=== PATIENT | male | born 1945 | race Caucasian/White ===

== ENCOUNTER 2016-09-27 19:28 | Inpatient (IN) | payer OTHER ==
[~2016-09-27] VITALS: Ht 167.6 cm; Wt 80.0 kg
--- NOTE | 2016-09-27 23:16 | DIAGNOSTIC IMAGING REPORT ---
PROCEDURE: CTA THORAX WITH CONTRAST INDICATION: Short of breath. Elevated D-dimer (16.2). History of prostate carcinoma. TECHNIQUE: Compared to CT thorax on 07/29/2016. of Isovue 370 was injected intravenously and axial images were obtained of the entire thorax with 3D sagittal and coronal MIP reconstructions. COMPARISON: None. FINDINGS: There is mild scarring at the left posterior lung base. Lungs are otherwise clear. Pulmonary vessels are normal and there is no evidence of pulmonary embolus. Heart and mediastinum are normal. Mild degenerate changes of the thoracic spine. IMPRESSION: 1. Negative CT pulmonary arteriogram. No evidence of pulmonary embolus. 2. Findings discussed with Dr. Carr. All CT scans at this facility use dose modulation, iterative reconstruction, and/or weight-based dosing when appropriate to reduce radiation dose to as low as reasonably achievable.
--- NOTE | 2016-09-27 23:58 | ED NURSING NOTES ---
Clinical Report - Nurses [facility] [place] [address] 09/27/2016 19:29 [id number] TRI[facility] Triage time 19:36 Sep 27 2016. Acuity: LEVEL 3. Chief Complaint: Location of symptoms- (SOB). ( 98% on 3L was 88% on RA). RIKI COMA SCORE: [place] Coma Scale. (15). --19:43 Jose Luis Reese R.N. 19:36 09/27/16. BP: 137/66. HR: 95. RR: 20. O2 saturation: 98%. Temp: 101 F. --19:43 Jose Luis Reese R.N. Weight: 77.1 kg stated. Height/Length: 66 inches Per Patient. BMI: 27.4. --19:41 Jose Luis Reese R.N. Medications Xeljanz Oral. --19:38 Jose Luis Reese R.N. Triazolam Oral. --19:39 Jose Luis Reese R.N. Losartan Potassium Oral. --19:39 Jose Luis Reese R.N. Furosemide Oral. --19:39 Jose Luis Reese R.N. Simvastatin Oral. --19:39 Jose Luis Reese R.N. Allergies No Known Drug Allergy. --19:40 Jose Luis Reese R.N. History Arrived by EMS. ( Pt arrives via ems report that pt has had SOB for 2 weeks. Pt states that he gets SOB with exertion. HX of prostate cancer). This occurred (2 weeks). Treatment CONVEYOR LOADER: None. --19:43 Jose Luis Reese R.N. SOCIAL HX: Light tobacco smoker. No alcohol use or drug use. --19:43 Jose Luis Reese R.N. PROBLEMS: Hypercholesterolemia. Prostate Cancer. --19:41 Jose Luis Reese R.N. ADDITIONAL SURGERIES: Carpal Tunnel Surgery. Total Hip Replacement. --19:41 Jose Luis Reese R.N. Interventions ID band on patient. To treatment room. --19:43 Jose Luis Reese R.N. PHYSICAL ASSESSMENT GENERAL / NEURO / PSYCH: Oriented X 4. Alert. Appears in no acute distress. HEENT: No facial asymmetry noted. Head non-tender. No swelling of head. RESPIRATORY: Mild respiratory distress. The patient can speak in full sentences. Accessory muscle use. Decreased breath sounds diffusely over both lungs. SKIN: Skin is warm and dry. --19:44 Jose Luis Reese R.N. NURSING PROGRESS NOTES Patient gowned. Reassurance given. Two patient identifiers checked. Call light placed in reach. Side rails up x 1. Brakes of bed on. --19:44 Jose Luis Reese R.N. Patient waiting for evaluation. --19:44 Jose Luis Reese R.N. 19:44 09/27/2016 Site #1 started via IV antecubital space with an 20g angiocath, with aseptic technique and good blood return; one attempt. Blood drawn: rainbow set and cultures x1. Labeled in the presence of the patient. Saline lock flushed. --19:44 Jose Luis Reese R.N. 20:28 09/27/2016 Levofloxacin PO 500 mg given. Allergies verified and confirmed 5 rights. --20:28 Jose Luis Reese R.N. 20:29 09/27/2016 Prednisone PO 40 mg given. Allergies verified and confirmed 5 rights. --20:29 Jose Luis Reese R.N. 23:21 09/27/16. BP: 115/58. HR: 93. --23:21 Jose Luis Reese R.N. 22:30 09/27/2016 Duoneb (Ipratropium-Albuterol) Neb TX Nebulizer 1 unit dose given. Given by the respiratory therapist. Allergies verified and confirmed 5 rights. --23:30 Jd Senior, SHALOM Baby Counselor 23:43 09/27/2016 Started bag #1 1000 mL IV Fluids IV NS (Saline); bolus of 1000 mL wide open via site #1. Allergies verified and confirmed 5 rights. IV patency established. IV site checked: no pain, redness, or swelling. IV flushed thoroughly pre- and post-medication administration. --23:43 Jose Luis Reese R.N. 23:52 09/27/2016 Albuterol Neb TX 1 unit dose given. Given by the respiratory therapist. Allergies verified and confirmed 5 rights. --23:52 Jd Senior, SHALOM Baby Counselor 23:54 09/27/16. O2 saturation: 98%. --23:54 Jose Luis Reese R.N. ( on 4L). --23:54 Jose Luis Reese R.N. 00:42 09/28/2016 Tylenol (Acetaminophen) PO 650 mg given. Allergies verified and confirmed 5 rights. --00:42 Jose Luis Reese R.N. DISPOSITION / DISCHARGE 00:26 09/28/16. BP: 112/53. HR: 82. RR: 18. O2 saturation: 98%. --00:27 Jose Luis Reese R.N. 00:30 09/28/16. Temp: 100.5 F. --00:31 Jose Luis Reese R.N. Report was given to a nurse via a phone call. All questions were answered. Report was acknowledged. --01:06 Jose Luis Reese R.N. 01:07 09/28/16. Pain level now 0/10. --01:07 Jose Luis Reese R.N. Locked/Released at 09/28/2016 2:07 by Jose Luis Reese R.N.
--- NOTE | 2016-09-27 23:58 | ED ORDER SUMMARY ---
..... Patient: YOUNG GONZALEZ OrderSheet [facility] VisitID: [id number] [place] [address] 71y, M Registration Date/Time: 09/27/2016 ORDER SHEET Weight: 77.1 kg (stated) Allergies: No Known Drug Allergy GENERAL ORDERS: CBC w Diff Urgent (19:36 09/27/2016 Stacy Beckham) (Ack 20:02 CHagerty ER Firer Powerhouse) (21:29 CHagerty ER Firer Powerhouse) CMP Urgent (19:36 09/27/2016 Stacy Beckham) (Ack 20:02 CHagerty ER Firer Powerhouse) (21:29 CHagerty ER Firer Powerhouse) UA-Culture if indicated Urgent (19:36 09/27/2016 Stacy Beckham) (Ack 20:02 CHagerty ER Firer Powerhouse) PT with INR Urgent (19:36 09/27/2016 Stacy Beckham) (Ack 20:02 CHagerty ER Firer Powerhouse) (21:29 CHagerty ER Firer Powerhouse) PTT Urgent (19:36 09/27/2016 Stacy Beckham) (Ack 20:02 CHagerty ER Firer Powerhouse) (21:29 CHagerty ER Firer Powerhouse) Rapid Influenza Screen (Nasal Pharyngeal) (laundry operator wash room) Urgent (19:50 09/27/2016 DBeyer R.N. per protocol) (Ack 20:02 CHagerty ER Firer Powerhouse) (21:29 CHagerty ER Firer Powerhouse) BNP Urgent (21:25 09/27/2016 Stacy Beckham) (21:29 CHagerty ER Firer Powerhouse) D-Dimer Urgent (21:25 09/27/2016 Stacy Beckham) (21:29 CHagerty ER Firer Powerhouse) CTA Thorax w Cont (No) (gfr > 60) Urgent (21:58 09/27/2016 Hernando Beckham) (Ack 22:01 CHagerty ER Firer Powerhouse) (22:45 MCampbell) MEDICATION ORDERS: DuoNeb Neb Tx 1 unit dose (NOW) (20:21 09/27/2016 Stacy Beckham) (Ack 20:24 CHagerty ER Firer Powerhouse) (23:30 CHagerty ER Firer Powerhouse) Levofloxacin PO 500 mg (NOW) (20:22 09/27/2016 Stacy Beckham) (20:28 Edmundo R.N.) Prednisone PO 40 mg (NOW) (20:22 09/27/2016 Stacy Beckham) (20:29 CARMELOeygabriel R.N.) Albuterol Neb Tx 5 mg (NOW) (23:47 09/27/2016 Hernando Beckham) (Ack 23:51 CHagerty ER Firer Powerhouse) (23:52 CHagerty ER Firer Powerhouse) Tylenol PO 650 mg (NOW) (00:38 09/28/2016 Hernando Beckham) (0:42 Edmundo R.N.) IV FLUIDS: IV Saline Lock (19:36 09/27/2016 Stacy Beckham) (19:44 Edmundo R.N.) IV NS : initial bolus 1000 mL (1000 mL/hr), then none - for X1 (NOW) (for renal protection) (23:31 09/27/2016 Hernando Beckham) (23:43 DBeygabriel R.N.) ORDER SHEET NOTES: [Electronically signed by Jose Luis Reese R.N. (02:07 09/28/2016)] [Electronically signed by Ramon Carr Dr. (04:43 10/03/2016)] [Electronically locked/signed by Jose Luis Reese R.N. (02:07 09/28/2016)]
--- NOTE | 2016-09-27 23:58 | ED ORDER SUMMARY ---
..... Patient: YOUNG GONZALEZ OrderSheet [facility] VisitID: [id number] [place] [address] 71y, M Registration Date/Time: 09/27/2016 ORDER SHEET Weight: 77.1 kg (stated) Allergies: No Known Drug Allergy GENERAL ORDERS: CBC w Diff Urgent (19:36 09/27/2016 Stacy Beckham) (Ack 20:02 CHagerty ER Neurology Professor) (21:29 CHagerty ER Neurology Professor) CMP Urgent (19:36 09/27/2016 Stacy Beckham) (Ack 20:02 CHagerty ER Neurology Professor) (21:29 CHagerty ER Neurology Professor) UA-Culture if indicated Urgent (19:36 09/27/2016 Stacy Beckham) (Ack 20:02 CHagerty ER Neurology Professor) PT with INR Urgent (19:36 09/27/2016 Stacy Beckham) (Ack 20:02 CHagerty ER Neurology Professor) (21:29 CHagerty ER Neurology Professor) PTT Urgent (19:36 09/27/2016 Stacy Beckham) (Ack 20:02 CHagerty ER Neurology Professor) (21:29 CHagerty ER Neurology Professor) Rapid Influenza Screen (Nasal Pharyngeal) (hotel breakfast attendant) Urgent (19:50 09/27/2016 DBeyer R.N. per protocol) (Ack 20:02 CHagerty ER Neurology Professor) (21:29 CHagerty ER Neurology Professor) BNP Urgent (21:25 09/27/2016 Stacy Beckham) (21:29 CHagerty ER Neurology Professor) D-Dimer Urgent (21:25 09/27/2016 Stacy Beckham) (21:29 CHagerty ER Neurology Professor) CTA Thorax w Cont (No) (gfr > 60) Urgent (21:58 09/27/2016 Hernando Beckham) (Ack 22:01 CHagerty ER Neurology Professor) (22:45 MCampbell) MEDICATION ORDERS: DuoNeb Neb Tx 1 unit dose (NOW) (20:21 09/27/2016 Stacy Beckham) (Ack 20:24 CHagerty ER Neurology Professor) (23:30 CHagerty ER Neurology Professor) Levofloxacin PO 500 mg (NOW) (20:22 09/27/2016 Stacy Beckham) (20:28 Edmundo R.N.) Prednisone PO 40 mg (NOW) (20:22 09/27/2016 Stacy Beckham) (20:29 CARMELOeygabriel R.N.) Albuterol Neb Tx 5 mg (NOW) (23:47 09/27/2016 Hernando Beckham) (Ack 23:51 CHagerty ER Neurology Professor) (23:52 CHagerty ER Neurology Professor) Tylenol PO 650 mg (NOW) (00:38 09/28/2016 Hernando Beckham) (0:42 Edmundo R.N.) IV FLUIDS: IV Saline Lock (19:36 09/27/2016 Stacy Beckham) (19:44 Edmundo R.N.) IV NS : initial bolus 1000 mL (1000 mL/hr), then none - for X1 (NOW) (for renal protection) (23:31 09/27/2016 Hernando Beckham) (23:43 DBeygabriel R.N.) ORDER SHEET NOTES: [Electronically signed by Jose Luis Reese R.N. (02:07 09/28/2016)] [Electronically signed by Ramon Carr Dr. (04:43 10/03/2016)] [Electronically locked/signed by Jose Luis Reese R.N. (02:07 09/28/2016)]
--- NOTE | 2016-09-27 23:58 | ED CLINICAL REPORT ---
Clinical Report - Physicians/Mid Levels [facility] [address] [place] [address] 09/27/2016 19:29 Patient: YOUNG GONZALEZ Time Seen: 19:35; initial patient contact. Arrived- By ambulance. Historian- patient. HISTORY OF PRESENT ILLNESS Chief Complaint: DYSPNEA and HISTORY OF CHRONIC OBSTRUCTIVE PULMONARY DISEASE. This started about 2 weeks ago and is still present. The dyspnea is described as moderate and is worsened by exertion. The patient has had sputum production, a cough, fever, wheezing and chills. He has had dyspnea on exertion. No sweating episodes, chest pain or discomfort, calf pain or foot swelling. No dizziness or palpitations. Similar symptoms previously: Several times. Recent medical care: The patient was seen recently in the office. ( Received PRBC's and Fe in oncology ofc 3 days ago for Hb of 6.7.). REVIEW OF SYSTEMS No nasal discharge, sinus drainage, nausea, vomiting or abdominal pain. No diarrhea, black stools or bloody stools. All systems otherwise negative, except as recorded above. PAST HISTORY Hypercholesterolemia. Prostate Cancer. SURGERIES: Carpal Tunnel Surgery. Total Hip Replacement. Medications: Simvastatin Oral. Furosemide Oral. Losartan Potassium Oral. Triazolam Oral. Xeljanz Oral. Allergies: No Known Drug Allergy. SOCIAL HISTORY Current every day smoker. No alcohol use or drug use. ADDITIONAL NOTES The nursing notes have been reviewed with agreement regarding the chief complaint, PMH and patient medications and allergies. PHYSICAL EXAM Vital Signs: 09/27/2016 19:36 BP: 137/66. HR: 95. RR: 20. O2 saturation: 98%. Temp: 101 F. Have been reviewed. Blood pressure normal. Heart rate normal. Respiratory rate normal. Febrile. Oxygen saturation normal. Eyes: No pale conjunctivae. ENT: Pharynx normal. Neck: Normal inspection. No jugular venous distention. CVS: Normal heart rate and rhythm. Heart sounds normal. Respiratory: Mild respiratory distress with accessory muscle use and retractions. Mildly prolonged expirations. Mildly decreased air movement diffusely over both lungs. Expiratory bilateral wheezes diffusely and posteriorly. Abdomen: Soft and nontender. No organomegaly. Skin: Skin warm and dry. Normal skin color. Extremities: No calf tenderness. No lower extremity edema. Neuro: Oriented X 3. LABS, X-RAYS, AND EKG Chest CT: (PROCEDURE: CTA THORAX WITH CONTRAST INDICATION: Short of breath. Elevated D-dimer (16.2). History of prostate carcinoma. TECHNIQUE: Compared to CT thorax on 07/29/2016. of Isovue 370 was injected intravenously and axial images were obtained of the entire thorax with 3D sagittal and coronal MIP reconstructions. COMPARISON: None. FINDINGS: There is mild scarring at the left posterior lung base. Lungs are otherwise clear. Pulmonary vessels are normal and there is no evidence of pulmonary embolus. Heart and mediastinum are normal. Mild degenerate changes of the thoracic spine. IMPRESSION: 1. Negative CT pulmonary arteriogram. No evidence of pulmonary embolus.). Chest CT performed with contrast. The study was independently viewed by me and interpreted by the radiologist. The study was discussed with the radiologist (via pacs and phone). Laboratory Tests: CBC w Diff: (JOSE: 09/27/2016 19:37) ( MsgRcvd 09/27/2016 21:10) Final results Test Result Flag Units (Reference) WHITE BLOOD COUNT 3.8 L K/uL (4.5-11.5) CORRECTED WBC 3.7 K/uL RED BLOOD COUNT 2.92 L M/uL (4.50-5.90) HEMOGLOBIN 9.7 L gm/dL (13.5-17.5) HEMATOCRIT 30.6 L % (41.0-53.0) MEAN CELL VOLUME 105 H fL (80-100) MEAN CORPUSCULAR HGB 33 pg (26-34) MEAN CORPUSCULAR HGB CONC 32 g/dL (31-37) RED CELL DISTRIBUTION WIDTH 18.4 H % (11.6-14.8) PLATELET COUNT 209 K/uL (150-400) POLY % 47 L % (50-75) BAND % 15 H % (0-8) LYMPH 6 L % (25-40) MONO 32 H % (3-14) EOSINOPHIL % 0 % (0-4) BASOPHIL % 0 % (0-2) METAMYELOCYTE % 0 % (0-1) MYELOCYTE 0 % (0-1) NUCLEATED RED BLOOD CELL 2 H (0-1) OTHER CELL TYPE 0 POLYCHROMASIA 2+ ANISOCYTOSIS 4+ TARGET CELLS 1+ OVALOCYTES 1+ MATTHEW-JOLLY BODIES 1+ KOSTAS CELLS 2+ ACANTHOCYTES 1+ OCT COMMENT FEW GIANT PLTS [id number]: (JOSE: 09/27/2016 19:37) ( [facility] 09/27/2016 21:54) Final results Test Result Flag Units (Reference) D-DIMER QUANTITATIVE 16.02 *H ug/mLFEU (0.27-0.52) CRITICAL RESULTS CALLEDCalled to [facility] 09/27/16 [id number] 2 patient identifiers used? YWas the result read back? YThe primary value of this quantitative assay relates toits negative predictive value (i.e. exclusion) of pulmonaryembolism/deep vein thrombosis/DIC.Elevated levels of d-dimer may also occur with:, age, cancer, inflammation, liver disease,post-op, infection, hematoma, coronary disease, peripheralarteriopathy, bleeding disorders and thrombolytic treatment.Results should be correlated with other clinical andradiological data.Testing Methodology: Latex Immunoassay PT with INR: (JOSE: 09/27/2016 19:37) ( [facility] 09/27/2016 20:03) Final results Test Result Flag Units (Reference) INR 1.1 (0.8-1.2) Low Intensity Therapy: INR 1.5-2.0 PT range 18.5-23.1Mod.Intensity Therapy: INR 2.0-3.0 PT range 23.1-31.5High Intensity Therapy: INR 2.5-3.5 PT range 27.4-35.5High Intensity Therapy 2: INR 3.0-4.0 PT range 31.5-39.3 APTT 34 SECONDS (24-34) BNP: (JOSE: 09/27/2016 19:37) ( [facility] 09/27/2016 21:55) Final results Test Result Flag Units (Reference) B-TYPE NATRIURETIC PEPTIDE 35.3 pg/ml (5-100) CMP: (JOSE: 09/27/2016 19:37) ( MsgRcvd 09/27/2016 19:58) Final results Test Result Flag Units (Reference) GLUCOSE 109 mg/dL (70-110) BUN 10 mg/dL (7-18) CREATININE 0.9 mg/dL (0.6-1.3) Estimated GFR >60 mL/min Estimated GFR- >60 mL/min Note: Persistent reduction over 3 months in eGFR<60 mL/min/1.73 m2 defines CKD. Patients with eGFR values>=60 mL/min/1.73 m2 may also have CKD if evidence ofpersistent proteinuria. Additional information may be foundat www.kidney.org. SODIUM 140 mmol/L (136-145) POTASSIUM 4.1 mmol/L (3.5-5.1) CHLORIDE 103 mmol/L (98-107) CARBON DIOXIDE 30 mmol/L (21-32) CALCIUM 8.8 mg/dL (8.5-10.1) TOTAL PROTEIN 7.5 g/dL (6.4-8.2) ALBUMIN 2.8 L g/dL (3.3-5.0) BILIRUBIN, TOTAL 0.3 mg/dL (0.0-1.0) ALKALINE PHOSPHATASE 48 U/L (46-116) AST (SGOT) 26 U/L (15-37) ALT (SGPT) 18 U/L (12-78) Rapid Influenza Screen: (JOSE: 09/27/2016 19:44) ( MsgRcvd 09/27/2016 20:15) Final results SPECIMEN DESCRIPTION: EQUIPMENT CLEANER Test Result Flag Units (Reference) RAPID INFLUENZA SCREEN DATE: 09/27/16 INFLUENZA A: NEGATIVE SCREEN FOR INFLUENZA A INFLUENZA B: NEGATIVE SCREEN FOR INFLUENZA B RAPID INFLUENZA NEGATIVE FOR "A" "B". . PROGRESS AND PROCEDURES Course of Care: DuoNeb nebulizer treatment (1 unit dose) given. THE PATIENT IS A PLEASANT 71-YEAR-OLD MALE WAS SIGNED OUT TO ME AT THE CHANGE OF SHIFT.. PLANS TO FOLLOW UP WITH THE PATIENT'S CT A OF THE CHEST. PATIENT'S D-DIMER IS ELEVATED AT 16.3. The patient has received several breathing treatments here in the emergency department as well as antibiotics. At this point in time, patient is nontoxic in appearance. Patient is still hypoxic when placed on room air. Another breathing treatment will be ordered. Workup shows no signs of acute pulmonary embolism. Patient still hypoxic on room air. Because of the patient's hypoxia, do not fill patient is a stable outpatient candidate. Patient will be admitted for COPD exacerbation. Appropriate at about extroverted and started previously prior to my arrival on shift. No other acute abnormalities. Patient without any signs of acute respiratory distress. Do not feel patient needs to be admitted to the ICU at this time. Discussed the patient workup, diagnosis, and plan of care. All questions answered. The patient is agreeable to treatment plan. Physical exam findings are improved. Symptoms better. Critical care performed (35 minutes). Time is exclusive of separately billable procedures. Time includes: direct patient care, patient reassessment, coordination of patient care, interpretation of data (laboratory data and chest xrays), review of patient's medical records, medical consultation and documentation of patient care. Disposition: Admitted to Acute Care. CLINICAL IMPRESSION acute hypoxia upper respiratory tract infection ACUTE COPD EXACERBATION. (Electronically signed by Ramon aCrr Dr. 10/03/2016 4:43)
--- NOTE | 2016-09-27 23:58 | ED NURSING NOTES ---
Clinical Report - Nurses [facility] [place] [address] 09/27/2016 19:29 [id number] TRI[facility] Triage time 19:36 Sep 27 2016. Acuity: LEVEL 3. Chief Complaint: Location of symptoms- (SOB). ( 98% on 3L was 88% on RA). RIKI COMA SCORE: [place] Coma Scale. (15). --19:43 Jose Luis Reese R.N. 19:36 09/27/16. BP: 137/66. HR: 95. RR: 20. O2 saturation: 98%. Temp: 101 F. --19:43 Jose Luis Reese R.N. Weight: 77.1 kg stated. Height/Length: 66 inches Per Patient. BMI: 27.4. --19:41 Jose Luis Reese R.N. Medications Xeljanz Oral. --19:38 Jose Luis Reese R.N. Triazolam Oral. --19:39 Jose Luis Reese R.N. Losartan Potassium Oral. --19:39 Jose Luis Reese R.N. Furosemide Oral. --19:39 Jose Luis Reese R.N. Simvastatin Oral. --19:39 Jose Luis Reese R.N. Allergies No Known Drug Allergy. --19:40 Jose Luis Reese R.N. History Arrived by EMS. ( Pt arrives via ems report that pt has had SOB for 2 weeks. Pt states that he gets SOB with exertion. HX of prostate cancer). This occurred (2 weeks). Treatment SAMPLE COLLECTOR: None. --19:43 Jose Luis Reese R.N. SOCIAL HX: Light tobacco smoker. No alcohol use or drug use. --19:43 Jose Luis Reese R.N. PROBLEMS: Hypercholesterolemia. Prostate Cancer. --19:41 Jose Luis Reese R.N. ADDITIONAL SURGERIES: Carpal Tunnel Surgery. Total Hip Replacement. --19:41 Jose Luis Reese R.N. Interventions ID band on patient. To treatment room. --19:43 Jose Luis Reese R.N. PHYSICAL ASSESSMENT GENERAL / NEURO / PSYCH: Oriented X 4. Alert. Appears in no acute distress. HEENT: No facial asymmetry noted. Head non-tender. No swelling of head. RESPIRATORY: Mild respiratory distress. The patient can speak in full sentences. Accessory muscle use. Decreased breath sounds diffusely over both lungs. SKIN: Skin is warm and dry. --19:44 Jose Luis Reese R.N. NURSING PROGRESS NOTES Patient gowned. Reassurance given. Two patient identifiers checked. Call light placed in reach. Side rails up x 1. Brakes of bed on. --19:44 Jose Luis Reese R.N. Patient waiting for evaluation. --19:44 Jose Luis Reese R.N. 19:44 09/27/2016 Site #1 started via IV antecubital space with an 20g angiocath, with aseptic technique and good blood return; one attempt. Blood drawn: rainbow set and cultures x1. Labeled in the presence of the patient. Saline lock flushed. --19:44 Jose Luis Reese R.N. 20:28 09/27/2016 Levofloxacin PO 500 mg given. Allergies verified and confirmed 5 rights. --20:28 Jose Luis Reese R.N. 20:29 09/27/2016 Prednisone PO 40 mg given. Allergies verified and confirmed 5 rights. --20:29 Jose Luis Reese R.N. 23:21 09/27/16. BP: 115/58. HR: 93. --23:21 Jose Luis Reese R.N. 22:30 09/27/2016 Duoneb (Ipratropium-Albuterol) Neb TX Nebulizer 1 unit dose given. Given by the respiratory therapist. Allergies verified and confirmed 5 rights. --23:30 Jd Senior, SHALOM Roll Operator 23:43 09/27/2016 Started bag #1 1000 mL IV Fluids IV NS (Saline); bolus of 1000 mL wide open via site #1. Allergies verified and confirmed 5 rights. IV patency established. IV site checked: no pain, redness, or swelling. IV flushed thoroughly pre- and post-medication administration. --23:43 Jose Luis Reese R.N. 23:52 09/27/2016 Albuterol Neb TX 1 unit dose given. Given by the respiratory therapist. Allergies verified and confirmed 5 rights. --23:52 Jd Senior, SHALOM Roll Operator 23:54 09/27/16. O2 saturation: 98%. --23:54 Jose Luis Reese R.N. ( on 4L). --23:54 Jose Luis Reese R.N. 00:42 09/28/2016 Tylenol (Acetaminophen) PO 650 mg given. Allergies verified and confirmed 5 rights. --00:42 Jose Luis Reese R.N. DISPOSITION / DISCHARGE 00:26 09/28/16. BP: 112/53. HR: 82. RR: 18. O2 saturation: 98%. --00:27 Jose Luis Reese R.N. 00:30 09/28/16. Temp: 100.5 F. --00:31 Jose Luis Reese R.N. Report was given to a nurse via a phone call. All questions were answered. Report was acknowledged. --01:06 Jose Luis Reese R.N. 01:07 09/28/16. Pain level now 0/10. --01:07 Jose Luis Reese R.N. Locked/Released at 09/28/2016 2:07 by Jose Luis Reese R.N.
[2016-09-28 01:56] VITALS: BP 102/48
[2016-09-28] MEDS ORDERED: XELJANZ5 MG PTUBE (02:56)
[2016-09-28] MEDS ORDERED: SIMVASTATIN80 MG PO (02:57)
[2016-09-28] MEDS ORDERED: HALCION EQUI0.125 MG SL (02:58)
[2016-09-28] MEDS ORDERED: FUROSEMIDE20 MG PO ×2 (02:58→03:00)
[2016-09-28] MEDS ORDERED: COZAAR50 MG PO (03:05)
--- NOTE | 2016-09-28 03:21 | History & Physical Report ---
Admission Admit Date 09/28/16 History Chief Complaint Shortness of Breath History of Present Illness Patient is a 71 year old male with a past medical history of COPD, Tobacco Use Disorder, Hyperlipidemia, Essential Hypertension, and Prostate Cancer. He presents to the ER at [facility] complaining of shortness of breath. Pt states his symptoms have been present for the last 2 weeks or so. He states his symptoms have progressively become worse to where he feels extremely short of breath today with light movement. Pt states he feels he is unable to draw a complete breath. He also reports occasional wheezing. Pt states he has had a cough which has been mildly productive of clear colored sputum. He also reports an intermittent tactile fever and chills. Pt drenies headache and myalgias. He denies any chest pain, palpitations, nausea, and vomiting. Pt states he is taking all of his medications has prescribed. He states he continues to smoke "lightly". No other complaints or concerns at this time. Patient History 1. COPD (chronic obstructive pulmonary disease) 2. Essential hypertension 3. Hyperlipidemia 4. Prostate cancer 5. Tobacco use disorder Social History Pt reports current daily tobacco use. He denies excessive alcohol consumption or use of illicit drugs. Family History Family history was reviewed; no changes noted. Medications and Allergies Medications Current Medications Sig/Joey Start time Last Medication Dose Route Stop Time Status Admin Azithromycin 500 MG DAILY 09/28 0900 AC PO 09/30 0901 Albuterol/Ipratropium 3 ML RTQID 09/28 0800 AC IN Methylprednisolone 125 MG Q8HR 09/28 0600 AC Sodium Succinate IV Pantoprazole Sodium 40 MG DAILY@0600 09/28 0600 AC IV Acetaminophen 650 MG Q6H PRN 09/28 0315 AC PO Docusate Sodium 250 MG BID PRN 09/28 0315 AC PO Morphine Sulfate 1 MG Q6H PRN 09/28 031 AC IV Naloxone HCl 0.4 MG PRN PRN 09/28 0315 AC IV Ondansetron HCl 4 MG Q6H PRN 09/28 0315 AC IV Sodium Chloride 1,000 ML ASDIRECTED 09/28 0315 AC IV Sodium Chloride 1,000 ML ASDIRECTED 09/28 0245 AC 09/28 IV 0254 Morphine Sulfate 2 MG Q4H PRN 09/28 0015 AC IV Albuterol/Ipratropium 3 ML Q4H PRN 09/27 2344 AC IN Morphine Sulfate 4 MG Q4H PRN 09/27 2344 AC IV Ondansetron HCl 4 MG Q8H PRN 09/27 2344 AC IV Home Medications: 1. Lasix 2. Losartan 3. Simvastatin 4. Triazolam 5. Xeljanz Allergies Coded Allergies: No Known Drug Allergy (01/09/04) Review of Systems Other All systems reviewed and are negative except for what has already been mentioned in the HPI. Physical Exam Vital Signs / I&Os Vital Signs Date Time Temp Pulse Resp B/P Pulse O2 O2 Flow FiO2 Ox Delivery Rate 09/28 0156 98.8 96 18 102/48 95 Nasal 3.0 Cannula 09/27 2353 2.0 09/27 2030 2.0 GENERAL: NAD; Pt laying comfortably in bed HEENT: AT/NC; PERRLA, EOMI; MM Moist CARDIAC: RRR, No M/R/G appreciated PULM: Wheezes at bilateral bases, no crackles appreciated, normal respiratory effort ABD: Soft, NT, ND, Positive BS in all quadrants; No hepatosplenomegaly appreciated EXT: No C/C/E in bilateral upper and lower extremity; No calve tenderness bilaterally SKIN: Warm, dry, pink, and intact NEURO: Alert and oriented x3; Following all commands PSYCH: Normal mood and affect LAB Results Laboratory Tests 09/27 193 Chemistry Plasma Sodium (136 - 145 mmol/L) 140 Plasma Potassium (3.5 - 5.1 mmol/L) 4.1 Plasma Chloride (98 - 107 mmol/L) 103 CO2 (Enzymatic) (21 - 32 mmol/L) 30 BUN (7 - 18 mg/dL) 10 Creatinine (0.6 - 1.3 mg/dL) 0.9 Est GFR ( Amer) (mL/min) >60 Est GFR (Non-Af Amer) (mL/min) >60 Glucose (70 - 110 mg/dL) 109 Plasma Calcium (8.5 - 10.1 mg/dL) 8.8 Total Bilirubin (0.0 - 1.0 mg/dL) 0.3 AST (15 - 37 U/L) 26 ALT (12 - 78 U/L) 18 Alkaline Phosphatase (46 - 116 U/L) 48 B-Natriuretic Peptide (5 - 100 pg/ml) 35.3 Total Protein (6.4 - 8.2 g/dL) 7.5 Albumin (3.3 - 5.0 g/dL) 2.8 Coagulation INR (0.8 - 1.2) 1.1 APTT (24 - 34 SECONDS) 34 D-Dimer, Quantitative (0.27 - 0.52 ug/mLFEU) 16.02 Hematology WBC (4.5 - 11.5 K/uL) 3.8 Corrected WBC (auto) (K/uL) 3.7 RBC (4.50 - 5.90 M/uL) 2.92 Hgb (13.5 - 17.5 gm/dL) 9.7 Hct (41.0 - 53.0 %) 30.6 MCV (80 - 100 fL) 105 MCH (26 - 34 pg) 33 RDW (11.6 - 14.8 %) 18.4 Neut % (Auto) (50 - 75 %) 47 Lymph % (Auto) (25 - 40 %) 6 [place] % (Auto) (3 - 14 %) 32 Eos % (Auto) (0 - 4 %) 0 Baso % (Auto) (0 - 2 %) 0 Band Neutrophils % (0 - 8 %) 15 Metamyelocytes % (0 - 1 %) 0 Myelocytes (0 - 1 %) 0 Nucleated RBCs (0 - 1) 2 Other Cell Type FEW GIANT PLTS Plt Count, EDTA (150 - 400 K/uL) 209 Polychromasia 2+ Anisocytosis (manual) 4+ Target Cells 1+ Ovalocytes 1+ [place] Bodies 1+ [place] Cells 2+ Acanthocytes (Spur) 1+ PUBS MCHC (31 - 37 g/dL) 32 Microbiology Date/Time Procedure - Status Source Growth 09/27 1943 Influenza Screen - COMP NASALPHAR Imaging CTA THORAX WITH CONTRAST INDICATION: Short of breath. Elevated D-dimer (16.2). History of prostate carcinoma. TECHNIQUE: Compared to CT thorax on 07/29/2016. of Isovue 370 was injected intravenously and axial images were obtained of the entire thorax with 3D sagittal and coronal MIP reconstructions. COMPARISON: None. FINDINGS: There is mild scarring at the left posterior lung base. Lungs are otherwise clear. Pulmonary vessels are normal and there is no evidence of pulmonary embolus. Heart and mediastinum are normal. Mild degenerate changes of the thoracic spine. IMPRESSION: 1. Negative CT pulmonary arteriogram. No evidence of pulmonary embolus. 2. Findings discussed with Dr. Carr. Assessment and Plan Problem List 1. Acute respiratory failure with hypoxemia Plan - Secondary to COPD Exacerbation - Start supplemental O2 to keep SpO2 between 88-92% - Duo-Neb breathing treatments q 6 hours scheduled - See #2 2. COPD exacerbation Plan - Start IV Solu-Medrol 125 mg q 8 hours for now - Start Duo-Neb breathing treatments q 6 hours scheduled - Monitor closely - Supplemental O2 to keep SpO2 greater than 88% - Start Azithromycin now for possible associated Bronchitis 3. Essential hypertension Plan - BP is borderline at present, therefore will hold pts home Lasix and Losartan for now 4. Hyperlipidemia Plan - Day team to restart pts home Simvastatin once dosage confirmed 5. Prostate cancer Plan - Pt is currently under treatment for this and follows up with Oncology as an outpatient 6. Tobacco use disorder Plan - Pt counseled to quit smoking
[2016-09-28 07:11] VITALS: BP 91/50
[2016-09-28 10:55] VITALS: BP 90/50
--- NOTE | 2016-09-28 12:31 | Progress Note ---
Subjective General Note Date: September 28, 2016 Admission Date: September 27, 2016 Hospital Day: 2 PCP: Nikhil Redmond M.D. Status: Inpatient Advanced Directive: FULL CODE Room: 208 Brief History: The patient is a 71-year-old white male with a significant past medical history of COPD, nicotine dependence-smoking, hyperlipidemia, hypertension, prostate CA, who presented to [facility] emergency department on the day of admission secondary to complaints of shortness of breath. Evaluation at that time was consistent with exacerbation of COPD, bronchitis, influenza A. Secondary to the above, the patient was admitted by Wesley Baxter M.D. for further evaluation and treatment. For other history present illness, past medical history, family history, social history, review of systems, and admission physical examination please see the patient's history and physical examination and ER visit note in the patient's medical record. Subjective: The patient states he is doing better today. Decrease shortness of breath. Persistent cough but improved. Patient requests: No specific Medications and Allergies Medications Current Medications Sig/Joey Start time Last Medication Dose Route Stop Time Status Admin Methylprednisolone 40 MG Q8HR 09/28 1400 AC Sodium Succinate IV Oseltamivir Phosphate 75 MG BID 09/28 0915 AC 09/28 PO 10/02 2101 1137 Azithromycin 500 MG DAILY 09/28 0900 AC 09/28 PO 09/30 0901 0902 Albuterol/Ipratropium 3 ML RTQID 09/28 0800 AC IN Pantoprazole Sodium 40 MG DAILY@0600 09/28 0600 AC 09/28 IV 0559 Acetaminophen 650 MG Q6H PRN 09/28 0315 AC PO Docusate Sodium 250 MG BID PRN 09/28 0315 AC PO Morphine Sulfate 1 MG Q6H PRN 09/28 0315 AC IV Naloxone HCl 0.4 MG PRN PRN 09/28 0315 AC IV Ondansetron HCl 4 MG Q6H PRN 09/28 0315 AC IV Sodium Chloride 1,000 ML ASDIRECTED 09/28 0315 AC IV Morphine Sulfate 2 MG Q4H PRN 09/28 0015 AC IV Albuterol/Ipratropium 3 ML Q4H PRN 09/27 2345 AC IN Ondansetron HCl 4 MG Q8H PRN 09/27 2345 AC IV Allergies Coded Allergies: No Known Drug Allergy (01/09/04) Physical Exam Vital Signs / I&Os Vital Signs Date Time Temp Pulse Resp B/P Pulse O2 O2 Flow FiO2 Ox Delivery Rate 09/28 1055 98.2 60 16 90/50 99 Nasal 3.0 Cannula 09/28 0935 Nasal 3.0 Cannula 09/28 0711 98.1 67 18 91/50 93 Nasal 3.0 Cannula 09/28 0200 Nasal 3.0 Cannula 09/28 0156 98.8 96 18 102/48 95 Nasal 3.0 Cannula 09/27 2354 2.0 09/27 2031 2.0 General Appearance Alert, Oriented X3, Cooperative, No acute distress Lungs Scattered rhonchi, minimal expiratory wheezes. Cardiovascular Regular rate and rhythm, Normal S1 and S2 Abdomen Normal bowel sounds, Soft, No tenderness Extremities No cyanosis, No clubbing, No edema Neurological Cranial nerves intact, No lateralizing signs Psych/Mental Status Mental status normal, Mood normal LAB Results Laboratory Tests 09/28 09/28 09/28 1117 1117 1105 Chemistry Troponin (0.00 - 1.5 ng/mL) <0.05 Cancelled C-Reactive Protein (0.0 - 0.9 mg/dL) 2.9 Procalcitonin Pending 09/28 09/28 09/28 0705 0320 UNK Chemistry Plasma Magnesium (1.8 - 2.4 mg/dL) 1.8 Troponin (0.00 - 1.5 ng/mL) <0.05 Serology Adenovirus (PCR) Cancelled Human Metapneumovirus Cancelled Influ A (H1N1 Se[place]) PCR Cancelled Influenza Type B (PCR) Cancelled Parainfluenza 1 (PCR) Cancelled Parainfluenza 2 (PCR) Cancelled Parainfluenza 3 (PCR) Cancelled RSV Type A (PCR) Cancelled RSV Type B (PCR) Cancelled Rhinovirus (PCR) Cancelled Urines Urine Color YELLOW Urine Appearance CLEAR Urine pH (5.0 - 8.0) 5.5 Ur Specific [place] (1.010 - 1.030) 1.010 Urine Protein (NEGATIVE) NEGATIVE Urine Ketones (NEGATIVE) NEGATIVE Urine Blood (NEGATIVE) NEGATIVE Urine Nitrite (NEGATIVE) NEGATIVE Urine Bilirubin (NEGATIVE) NEGATIVE Urine Urobilinogen (0.2 - 1.0 EU/dL) 0.2 Ur Leukocyte Esterase (NEGATIVE) NEGATIVE Urine RBC (0 - 1 rbc/hpf) NONE SEEN Urine WBC (0 - 1 wbc/hpf) NONE SEEN Ur Epithelial Cells (0 - 5 EPI/hpf) 0-1 Urine Bacteria (NONE SEEN) NONE SEEN Urine Glucose (NEGATIVE) NEGATIVE Urine Comment CULT NOT INDICATED 09/27 193 Chemistry Plasma Sodium (136 - 145 mmol/L) 140 Plasma Potassium (3.5 - 5.1 mmol/L) 4.1 Plasma Chloride (98 - 107 mmol/L) 103 CO2 (Enzymatic) (21 - 32 mmol/L) 30 BUN (7 - 18 mg/dL) 10 Creatinine (0.6 - 1.3 mg/dL) 0.9 Est GFR ( Amer) (mL/min) >60 Est GFR (Non-Af Amer) (mL/min) >60 Glucose (70 - 110 mg/dL) 109 Plasma Calcium (8.5 - 10.1 mg/dL) 8.8 Total Bilirubin (0.0 - 1.0 mg/dL) 0.3 AST (15 - 37 U/L) 26 ALT (12 - 78 U/L) 18 Alkaline Phosphatase (46 - 116 U/L) 48 B-Natriuretic Peptide (5 - 100 pg/ml) 35.3 Total Protein (6.4 - 8.2 g/dL) 7.5 Albumin (3.3 - 5.0 g/dL) 2.8 Coagulation INR (0.8 - 1.2) 1.1 APTT (24 - 34 SECONDS) 34 D-Dimer, Quantitative (0.27 - 0.52 ug/mLFEU) 16.02 Hematology WBC (4.5 - 11.5 K/uL) 3.8 Corrected WBC (auto) (K/uL) 3.7 RBC (4.50 - 5.90 M/uL) 2.92 Hgb (13.5 - 17.5 gm/dL) 9.7 Hct (41.0 - 53.0 %) 30.6 MCV (80 - 100 fL) 105 MCH (26 - 34 pg) 33 RDW (11.6 - 14.8 %) 18.4 Neut % (Auto) (50 - 75 %) 47 Lymph % (Auto) (25 - 40 %) 6 [place] % (Auto) (3 - 14 %) 32 Eos % (Auto) (0 - 4 %) 0 Baso % (Auto) (0 - 2 %) 0 Band Neutrophils % (0 - 8 %) 15 Metamyelocytes % (0 - 1 %) 0 Myelocytes (0 - 1 %) 0 Nucleated RBCs (0 - 1) 2 Other Cell Type FEW GIANT PLTS Plt Count, EDTA (150 - 400 K/uL) 209 Polychromasia 2+ Anisocytosis (manual) 4+ Target Cells 1+ Ovalocytes 1+ [place] Bodies 1+ [place] Cells 2+ Acanthocytes (Spur) 1+ PUBS MCHC (31 - 37 g/dL) 32 Microbiology Date/Time Procedure - Status Source Growth 09/27 1943 Influenza Screen - COMP NASALPHAR Imaging CTA Thorax IMPRESSION: 1. Negative CT pulmonary arteriogram. No evidence of pulmonary embolus. 2. Findings discussed with Dr. Carr. All CT scans at this facility use dose modulation, iterative reconstruction, and/or weight-based dosing when appropriate to reduce radiation dose to as low as reasonably achievable. Dictated by: SP HERNANDEZ MD D: HERNANDEZ;09/27/16 1725 CTA imaging reviewed-09/28/69 Berry Barrera M.D. Assessment and Plan Problem List 1. COPD exacerbation Plan -Patient presents with findings of exacerbation of COPD -DuoNeb, albuterol, IV corticosteroids, and O2 supplementation as necessary -Status improved since admission -Continue present therapy switching to oral corticosteroids in a.m. if stable -Anticipated discharge 1-2 days with improved status 2. Tobacco use disorder Plan -Smoking cessation education -NicoDerm when necessary -Encourage smoking abstinence post discharge 3. Essential hypertension Plan -BP on the low side -Monitor -Hold antihypertensives at this time. -Low-salt diet 4. Anemia Status Acute Onset Date Unknown Plan -Patient with mild anemia -H&H 9.7/30.6 -Macrocytic -Check B12, folate, iron studies. 5. Macrocytosis Status Acute Onset Date Unknown Plan -See above -Macrocytic anemia -Check B12 and folate level 6. Influenza A Status Acute Onset Date Unknown Plan -Patient presents with findings of influenza A -Tamiflu 75 mg by mouth twice a day 5 days -Monitor for secondary bacterial infection Current status: Fair, stable Anticipated discharge date: Anticipated discharge in 2-3 days Anticipated discharge placement: Home Patient care time: Time spent in chart review, patient interview, physical exam, CPOE, and care documentation: 35 minutes Visit to patient today: 2 Complexity of care: High E&M Codes Rounding: Inpt-High/[id number]
[2016-09-28 14:50] VITALS: BP 101/60
[2016-09-28 18:42] VITALS: BP 102/57
[2016-09-29] VITALS (8 sets, daily range): BP systolic 96–123; BP diastolic 50–83
--- NOTE | 2016-09-29 07:37 | Progress Note ---
Subjective General Note Date: September 29, 2016 Admission Date: September 27, 2016 Hospital Day: 3 PCP: Nikhil Redmond M.D. Status: Inpatient Advanced Directive: FULL CODE Room: 208 Brief History: The patient is a 71-year-old white male with a significant past medical history of COPD, nicotine dependence-smoking, hyperlipidemia, hypertension, prostate CA, who presented to [facility] emergency department on the day of admission secondary to complaints of shortness of breath. Evaluation at that time was consistent with exacerbation of COPD, bronchitis, influenza A. Secondary to the above, the patient was admitted by Wesley Baxter M.D. for further evaluation and treatment. For other history present illness, past medical history, family history, social history, review of systems, and admission physical examination please see the patient's history and physical examination and ER visit note in the patient's medical record. Subjective: The patient states he is doing better today. Decrease shortness of breath. Persistent cough but improved. Remains weak Patient requests: No specific other expectorant for cough Medications and Allergies Medications Current Medications Sig/Joey Start time Last Medication Dose Route Stop Time Status Admin Methylprednisolone 40 MG Q8HR 09/28 1400 AC 09/28 Sodium Succinate IV 2131 Oseltamivir Phosphate 75 MG BID 09/28 0915 AC 09/28 PO 10/02 210 2131 Azithromycin 500 MG DAILY 09/28 0900 AC 09/28 PO 09/30 0901 0902 Albuterol/Ipratropium 3 ML RTQID 09/28 0800 AC 09/28 IN 1948 Pantoprazole Sodium 40 MG DAILY@0600 09/28 0600 AC 09/28 IV 0559 Acetaminophen 650 MG Q6H PRN 09/28 0315 AC PO Docusate Sodium 250 MG BID PRN 09/28 0315 AC PO Morphine Sulfate 1 MG Q6H PRN 09/28 0315 AC IV Naloxone HCl 0.4 MG PRN PRN 09/28 0315 AC IV Ondansetron HCl 4 MG Q6H PRN 09/28 0315 AC IV Sodium Chloride 1,000 ML ASDIRECTED 09/28 0315 AC 09/29 IV 0415 Morphine Sulfate 2 MG Q4H PRN 09/28 0015 AC IV Albuterol/Ipratropium 3 ML Q4H PRN 09/27 2345 AC IN Ondansetron HCl 4 MG Q8H PRN 09/27 2345 AC IV Allergies Coded Allergies: No Known Drug Allergy (01/09/04) Physical Exam Vital Signs / I&Os Vital Signs Date Time Temp Pulse Resp B/P Pulse O2 O2 Flow FiO2 Ox Delivery Rate 09/29 0712 99.0 82 20 116/55 100 Nasal 2.0 Cannula 09/29 0409 98.6 93 20 118/59 93 Nasal 2.0 Cannula 09/29 0034 98.6 78 16 106/60 96 Nasal 2.0 Cannula 09/28 2051 Nasal 2.0 Cannula 09/28 1949 2.0 09/28 1842 98.4 76 16 102/57 95 Nasal 2.0 Cannula 09/28 1535 2.0 09/28 1450 97.9 68 18 101/60 98 Nasal 3.0 Cannula 09/28 1055 98.2 60 16 90/50 99 Nasal 3.0 Cannula 09/28 0935 Nasal 3.0 Cannula I&O 09/29 0000 09/28 1600 09/28 0800 Intake Total 1586 420 456 Output Total 250 350 400 Balance 1336 70 56 General Appearance Alert, Oriented X3, Cooperative, No acute distress Lungs Scattered rhonchi, mild expiratory wheezes Cardiovascular Regular rate and rhythm, Normal S1 and S2 Abdomen Normal bowel sounds, Soft, No tenderness Extremities No cyanosis, No clubbing, No edema Neurological Cranial nerves intact, No lateralizing signs Psych/Mental Status Mental status normal, Mood normal LAB Results Laboratory Tests 09/29 09/29 09/29 09/28 09/28 0558 0558 0500 1510 1117 Chemistry Plasma Sodium (136 - 145 mmol/L) 143 Plasma Potassium (3.5 - 5.1 mmol/L) 4.9 Plasma Chloride (98 - 107 mmol/L) 109 CO2 (Enzymatic) (21 - 32 mmol/L) 31 BUN (7 - 18 mg/dL) 12 Creatinine (0.6 - 1.3 mg/dL) 0.6 Est GFR ( Amer) (mL/min) >60 Est GFR (Non-Af Amer) (mL/min) >60 Glucose (70 - 110 mg/dL) 139 Plasma Calcium (8.5 - 10.1 mg/dL) 7.5 Iron (35 - 150 ug/dL) 28 TIBC (260 - 445 ug/dL) 157 Iron Saturation (15 - 50 %) 18 Troponin (0.00 - 1.5 ng/mL) <0.05 Vitamin B12 (211 - 946 pg/mL) 820 Cancelled Folate (>3.0 ng/mL) 7.5 Cancelled Procalcitonin (0 - 0.5 ng/mL) <0.5 Hematology WBC (4.5 - 11.5 K/uL) 6.5 RBC (4.50 - 5.90 M/uL) 2.48 Hgb (13.5 - 17.5 gm/dL) 8.0 Hct (41.0 - 53.0 %) 26.2 MCV (80 - 100 fL) 105 MCH (26 - 34 pg) 32 RDW (11.6 - 14.8 %) 18.2 Neut % (Auto) (50 - 75 %) 79.6 Lymph % (Auto) (25 - 40 %) 2.4 [place] % (Auto) (3 - 14 %) 18.0 Eos % (Auto) (0 - 4 %) 0 Baso % (Auto) (0 - 2 %) 0 Plt Count, EDTA (150 - 400 K/uL) 165 PUBS MCHC (31 - 37 g/dL) 09/28 1117 1105 Chemistry Troponin (0.00 - 1.5 ng/mL) <0.05 Cancelled C-Reactive Protein (0.0 - 0.9 mg/dL) 2.9 Assessment and Plan Problem List 1. COPD exacerbation Plan -Status stable to improved -O2 sat 94% 2 L/m nasal cannula -Continue DuoNeb/albuterol/supplemental oxygen/corticosteroids -Switch to prednisone 40 mg by mouth daily -Monitor 2. Influenza A Status Acute Onset Date Unknown Plan -Stable -Afebrile -Continue Tamiflu 75 mg by mouth twice a day -Monitor 3. Anemia Status Acute Onset Date Unknown Plan -Mild -H&H-8.0/26.2 -Macrocytic -B12, folate, iron studies within normal limits -Monitor 4. Macrocytosis Status Acute Onset Date Unknown Plan -See above -B12, folate within normal limits 5. Essential hypertension Plan -Blood pressure well controlled -BP this a.m. 103/51 mmHg -Low-salt diet -Monitor 6. Tobacco use disorder Plan -Patient with history of tobacco use disorder/nicotine dependence -NicoDerm patch when necessary -Encourage smoking cessation -Encourage smoking abstinence post discharge 7. Prostate cancer Plan -Outpatient follow-up with PCP Current status: Fair, improved Anticipated discharge date: Anticipated discharge 1-2 days with improved status Anticipated discharge placement: Home Patient care time: Time spent in chart review, patient interview, physical exam, CPOE, and care documentation: 25 minutes Visit to patient today: 1 Complexity of care: Moderate Plan care transferred to Dr. Redmond in a.m. E&M Codes Rounding: Inpt-Moderate/[id number]
[2016-09-30] VITALS (14 sets, daily range): BP systolic 109–139; BP diastolic 55–68
--- NOTE | 2016-09-30 08:42 | Progress Note ---
Subjective General SICKNESS BEGAN SINCE LASHAWN. MORE SOB THIS WEEKEND SO CAME TO ER AND ADMITTED FOR FLU? WBC LOW AND ANEMIC WITH PROGRESSIVE PROSTATE CA. Constitutional Fever, Chills. Denies: Sweats, Weakness, Malaise. Eyes Denies: Pain, Vision Change, Conjunctival Inflammation, Eyelid Inflammation, Redness, Other. ENT Denies: Ear Pain, Ear Discharge, Nose Pain, Nasal Discharge, Nasal Congestion, Mouth Pain, Mouth Swelling, Throat Pain, Throat Swelling. Respiratory Cough, SOB w/exertion, Other (SPUTUM PRODUCTION LAST WEEK PEREIRA). Denies: Dry, Wheezing, Hemoptysis, Pleuritic Pain, Sputum. Cardiovascular Edema (RESOLVED WITH ELEVATION AND SC). Denies: Chest Pain, Palpitations, Orthopnea, PND, Light-headedness. Gastrointestinal Diarrhea (IMPROVED), Other (SOOLS DARKER). Denies: Nausea, Vomiting, Abdominal Pain, Constipation, Melena, Hematochezia. Genitourinary Denies: Dysuria, Frequency, Incontinence, Hematuria, Retention. Musculoskeletal Denies: Other (WRIST PAINS CONTROLLED). Skin Denies: Rash, Lesions, Jaundice, Bruising, Other. Neurological Denies: Weakness, Numbness, Incoordination, Change in speech, Confusion, Seizures, Other. Physical Exam Vital Signs / I&Os Vital Signs Date Time Temp Pulse Resp B/P Pulse O2 O2 Flow FiO2 Ox Delivery Rate 09/30 0803 2.5 09/30 0655 99.0 80 18 114/61 90 Nasal 2.5 Cannula 09/30 0249 98.1 80 20 109/56 90 Room Air 2.5 09/29 2311 98.4 85 20 104/61 92 Room Air 2.0 09/29 2156 97.7 62 20 117/83 96 Room Air 2.0 09/29 2100 2.0 09/29 1939 Room Air 2.0 09/29 1831 98.2 87 20 96/50 94 Room Air 2.0 09/29 1531 2.0 09/29 1446 99.1 94 20 123/56 95 Room Air 2.0 09/29 1309 77 Room Air 09/29 1232 2.0 09/29 1044 99.1 96 20 103/51 94 Nasal 2.0 Cannula 09/29 0926 2.0 09/29 0900 Nasal 2.0 Cannula I&O 09/29 0800 09/29 1600 01/23 0000 Intake Total 992 528 5228 Output Total 800 250 660 Balance 0 290 1320 General Appearance Alert, Oriented X3, Cooperative, No acute distress HEENT Normal exam, Atraumatic, PERRLA, EOMI, Moist mucous membranes Lungs DIMINISHED BS W/O WHEEZE Breasts Symmetric Neck Normal exam, Supple, No JVD, No lymphadenopathy Cardiovascular Regular rate and rhythm, No murmurs, gallops, rubs Abdomen Normal bowel sounds, Soft, No tenderness Extremities Normal exam, No edema, Strength = upper ext's, Strength = lower ext' s Skin BRUISING ON ARMS Neurological Normal exam, Normal speech, Normal tone, Strength 5/5 x4 ext's, No lateralizing signs Psych/Mental Status Mental status normal, Mood normal LAB Results Laboratory Tests 09/30 0602 Hematology WBC (4.5 - 11.5 K/uL) 9.3 RBC (4.50 - 5.90 M/uL) 2.37 Hgb (13.5 - 17.5 gm/dL) 7.7 Hct (41.0 - 53.0 %) 24.9 MCV (80 - 100 fL) 105 MCH (26 - 34 pg) 33 RDW (11.6 - 14.8 %) 18.0 Neut % (Auto) (50 - 75 %) 86.8 Lymph % (Auto) (25 - 40 %) 1.9 [place] % (Auto) (3 - 14 %) 11.3 Eos % (Auto) (0 - 4 %) 0 Baso % (Auto) (0 - 2 %) 0 Plt Count, EDTA (150 - 400 K/uL) 155 PUBS MCHC (31 - 37 g/dL) 31 Assessment and Plan Problem List 1. COPD (chronic obstructive pulmonary disease) Plan SPIROMETRY 2. Hypoxia Plan SUPPLEMENTAL O2 3. Prostate cancer Plan STOPPED XTANDI? TREAMENT. 4. Anemia Status Acute Onset Date Unknown Plan GETTING IRON INFUSION AT ONCOLOGY. APPT SCHEDULED WITH DR STERN 10/08 TO ARRANGE COLONOSCOPY 5. Essential hypertension Plan CONTROLLED 6. Tobacco use disorder Plan STILL SMOKING AT HOME. WILL PROVIDE CESSATION INFO. E&M Codes Rounding: Inpt-Moderate/[id number]
[2016-10-01] VITALS (7 sets, daily range): BP systolic 109–157; BP diastolic 48–94
--- NOTE | 2016-10-01 07:23 | Progress Note ---
Subjective General nO PAINS TODAY. pOOR APPETITE. cOUGH IMPROVED. sTOOLS DARK. Constitutional Chills, Weakness. Denies: Fever, Sweats, Malaise. Eyes Denies: Pain, Vision Change, Conjunctival Inflammation, Eyelid Inflammation, Redness, Other. ENT Denies: Ear Pain, Ear Discharge, Nose Pain, Nasal Discharge, Nasal Congestion, Mouth Pain, Mouth Swelling, Throat Pain, Throat Swelling, Other. Respiratory Cough, Dry, SOB w/exertion. Denies: Wheezing, Hemoptysis, Pleuritic Pain, Sputum. Cardiovascular Denies: Chest Pain, Palpitations, Orthopnea, PND, Edema, Light-headedness. Gastrointestinal Melena, Other (STOOLS SOFT AND DARK, NOT TAR). Denies: Nausea, Vomiting, Abdominal Pain, Diarrhea, Constipation, Hematochezia. Genitourinary Denies: Dysuria, Frequency, Incontinence, Hematuria, Retention. Musculoskeletal Denies: Neck Pain, Shoulder Pain, Arm Pain, Back Pain, Hand Pain, Leg Pain, Foot Pain. Skin Bruising. Denies: Rash, Lesions, Jaundice. Neurological Other. Physical Exam Vital Signs / I&Os Vital Signs Date Time Temp Pulse Resp B/P Pulse O2 O2 Flow FiO2 Ox Delivery Rate 10/01 0710 3.0 10/01 0659 97.3 58 18 147/94 98 Room Air 0.0 10/01 0222 98.8 83 18 137/66 90 Nasal 3.0 Cannula 09/30 2200 3.0 09/30 2114 Nasal 3.0 Cannula 09/30 2104 98.4 73 18 123/61 96 Nasal 3.0 Cannula 09/30 2017 98.2 91 18 139/67 94 Nasal 3.0 Cannula 09/30 1915 98.4 87 18 129/57 96 Nasal 3.0 Cannula 09/30 1815 98.4 91 18 117/55 95 Nasal 3.0 Cannula 09/30 1750 90 18 119/56 95 3.0 09/30 1725 98.2 91 18 119/56 95 3.0 09/30 1656 98.4 93 16 124/64 99 Nasal 3.0 Cannula 09/30 1556 98.1 96 18 126/58 100 Nasal 3.0 Cannula 09/30 1528 3.0 09/30 1456 98.1 60 18 121/68 99 3.0 09/30 1440 98.4 92 18 127/61 94 Nasal 3.0 Cannula 09/30 1418 98.4 92 18 127/61 94 Nasal 3.0 Cannula 09/30 1205 2.0 09/30 1201 Nasal 3.0 Cannula 09/30 1023 98.6 97 18 130/65 86 Nasal 3.0 Cannula 09/30 0853 2.0 09/30 0803 2.5 I&O 09/30 0800 09/30 1600 10/01 0000 Intake Total 079 087 9699 Output Total 698 273 7956 Balance 182 490 -686 General Appearance Alert, Oriented X3, Cooperative, No acute distress HEENT Normal exam, PERRLA, EOMI, Moist mucous membranes Lungs Normal exam, Clear to auscultation, Normal air movement Breasts Symmetric Neck Supple, No JVD, No masses, No lymphadenopathy Cardiovascular Regular rate and rhythm, Normal S1 and S2, No murmurs, gallops, rubs Abdomen Normal exam, Normal bowel sounds, Soft, No tenderness, No rebound, No masses Extremities No clubbing, No edema, Normal pulses, Strength = upper ext's, Strength = lower ext's Skin No Rashes, No Breakdown, No Significant Lesions Neurological Normal exam, Normal speech, Normal tone, No lateralizing signs Psych/Mental Status Mental status normal, Mood normal Assessment and Plan Problem List 1. Influenza A Status Acute Onset Date Unknown Plan oN TAMIFLU 2. Upper respiratory disease Plan IMPROVING. 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 Hypoxia Plan WILL CHECK O2 4. COPD (chronic obstructive pulmonary disease) Plan SMOKING CESSATION. SPIROMETRY DONE 5. Prostate cancer Plan PROGRESSIVE 6. Anemia Status Acute Onset Date Unknown Plan COLONOSCOPY ONCE RECOVERED FROM 7. Essential hypertension Plan CONTROLLED
--- NOTE | 2016-10-01 07:23 | Progress Note ---
Subjective General nO PAINS TODAY. pOOR APPETITE. cOUGH IMPROVED. sTOOLS DARK. Constitutional Chills, Weakness. Denies: Fever, Sweats, Malaise. Eyes Denies: Pain, Vision Change, Conjunctival Inflammation, Eyelid Inflammation, Redness, Other. ENT Denies: Ear Pain, Ear Discharge, Nose Pain, Nasal Discharge, Nasal Congestion, Mouth Pain, Mouth Swelling, Throat Pain, Throat Swelling, Other. Respiratory Cough, Dry, SOB w/exertion. Denies: Wheezing, Hemoptysis, Pleuritic Pain, Sputum. Cardiovascular Denies: Chest Pain, Palpitations, Orthopnea, PND, Edema, Light-headedness. Gastrointestinal Melena, Other (STOOLS SOFT AND DARK, NOT TAR). Denies: Nausea, Vomiting, Abdominal Pain, Diarrhea, Constipation, Hematochezia. Genitourinary Denies: Dysuria, Frequency, Incontinence, Hematuria, Retention. Musculoskeletal Denies: Neck Pain, Shoulder Pain, Arm Pain, Back Pain, Hand Pain, Leg Pain, Foot Pain. Skin Bruising. Denies: Rash, Lesions, Jaundice. Neurological Other. Physical Exam Vital Signs / I&Os Vital Signs Date Time Temp Pulse Resp B/P Pulse O2 O2 Flow FiO2 Ox Delivery Rate 10/01 0710 3.0 10/01 0659 97.3 58 18 147/94 98 Room Air 0.0 10/01 0222 98.8 83 18 137/66 90 Nasal 3.0 Cannula 09/30 2200 3.0 09/30 2114 Nasal 3.0 Cannula 09/30 2104 98.4 73 18 123/61 96 Nasal 3.0 Cannula 09/30 2017 98.2 91 18 139/67 94 Nasal 3.0 Cannula 09/30 1915 98.4 87 18 129/57 96 Nasal 3.0 Cannula 09/30 1815 98.4 91 18 117/55 95 Nasal 3.0 Cannula 09/30 1750 90 18 119/56 95 3.0 09/30 1725 98.2 91 18 119/56 95 3.0 09/30 1656 98.4 93 16 124/64 99 Nasal 3.0 Cannula 09/30 1556 98.1 96 18 126/58 100 Nasal 3.0 Cannula 09/30 1528 3.0 09/30 1456 98.1 60 18 121/68 99 3.0 09/30 1440 98.4 92 18 127/61 94 Nasal 3.0 Cannula 09/30 1418 98.4 92 18 127/61 94 Nasal 3.0 Cannula 09/30 1205 2.0 09/30 1201 Nasal 3.0 Cannula 09/30 1023 98.6 97 18 130/65 86 Nasal 3.0 Cannula 09/30 0853 2.0 09/30 0803 2.5 I&O 09/30 0800 09/30 1600 10/01 0000 Intake Total 874 103 7556 Output Total 076 011 9659 Balance 182 490 -686 General Appearance Alert, Oriented X3, Cooperative, No acute distress HEENT Normal exam, PERRLA, EOMI, Moist mucous membranes Lungs Normal exam, Clear to auscultation, Normal air movement Breasts Symmetric Neck Supple, No JVD, No masses, No lymphadenopathy Cardiovascular Regular rate and rhythm, Normal S1 and S2, No murmurs, gallops, rubs Abdomen Normal exam, Normal bowel sounds, Soft, No tenderness, No rebound, No masses Extremities No clubbing, No edema, Normal pulses, Strength = upper ext's, Strength = lower ext's Skin No Rashes, No Breakdown, No Significant Lesions Neurological Normal exam, Normal speech, Normal tone, No lateralizing signs Psych/Mental Status Mental status normal, Mood normal Assessment and Plan Problem List 1. Influenza A Status Acute Onset Date Unknown Plan oN TAMIFLU 2. Upper respiratory disease Plan IMPROVING. CHECK O2 OFF NURSERY LABORER 3. Hypoxia Plan WILL CHECK O2 4. COPD (chronic obstructive pulmonary disease) Plan SMOKING CESSATION. SPIROMETRY DONE 5. Prostate cancer Plan PROGRESSIVE 6. Anemia Status Acute Onset Date Unknown Plan COLONOSCOPY ONCE RECOVERED FROM 7. Essential hypertension Plan CONTROLLED
[2016-10-01] MEDS ORDERED: IPRATROPIUM BROMIDE/ IN (08:37)
--- NOTE | 2016-10-01 09:13 | DIAGNOSTIC IMAGING REPORT ---
PROCEDURE: XR CHEST 2 VIEW INDICATION: DESATS WITH AND W/O O2 TECHNIQUE: PA and lateral view. COMPARISON: CTA thorax 09/27/2016 FINDINGS: New mild right basilar alveolar opacities, Seth B lines and at tiny bilateral pleural effusions. Normal heart size and pulmonary vessels. Bony thorax is unremarkable. IMPRESSION: 1. Right basilar infiltrate suggestive of pneumonia versus pulmonary edema with findings consistent with fluid overload 2. Results discussed with Dr. Redmond
--- NOTE | 2016-10-01 14:53 | DIAGNOSTIC IMAGING REPORT ---
PROCEDURE: US ECHOCARDIOGRAM INDICATION: Shortness of breath TECHNIQUE: Technically adequate study. The patient in sinus rhythm during study. COMPARISON: None FINDINGS: Left ventricle is normal in size with an end diastolic dimension of 4.5 cm. There is mild concentric left ventricular hypertrophy with interventricular septum and left ventricular posterior wall both measuring 1.1 cm. Left ventricular ejection fraction is normal and estimated at 60%. There is normal wall motion. Grade 1 diastolic dysfunction is present. Right ventricle is normal in size and function. Left atrium is mildly dilated. Right atrium is normal in size. Interatrial septum is intact. Aortic valve is trileaflet. There is mild sclerosis. No stenosis. There is trace insufficiency. Mitral valve has mild annular calcification. There is trace regurgitation. The tricuspid valve is normal in structure with mild insufficiency. Peak tricuspid insufficiency gradient is 40 mmHg. Pulmonary artery systolic pressure is estimated at 40-45 mmHg. Pulmonic valve is normal in structure and has trace insufficiency. Pericardium no effusion There is a small right pleural effusion. Ascending aorta is upper limits of normal in size at 3.7 cm. IMPRESSION: 1. Normal left ventricular ejection fraction, grade 1 diastolic dysfunction, trace aortic valve insufficiency, mild bordering on moderate pulmonary hypertension, small right pleural effusion.
[2016-10-02 02:47] VITALS: BP 126/54
[2016-10-02 07:07] VITALS: BP 131/80
--- NOTE | 2016-10-02 07:31 | Progress Note ---
Subjective General SLEPT WELL. NO PAIN. BREATHING BETTER. MIN COUGH. Constitutional Denies: Fever, Chills, Sweats, Weakness, Malaise. Eyes Denies: Pain, Vision Change, Conjunctival Inflammation, Eyelid Inflammation, Redness, Other. ENT Denies: Ear Pain, Ear Discharge, Nose Pain, Nasal Discharge, Nasal Congestion, Mouth Pain, Mouth Swelling, Throat Pain, Throat Swelling, Other. Respiratory Cough, SOB w/exertion (MCCARTY EASY BUT BETTER), Sputum. Denies: Dry, Wheezing, Hemoptysis, Pleuritic Pain. Cardiovascular Denies: Chest Pain, Palpitations, Orthopnea, PND, Edema, Light-headedness. Gastrointestinal Denies: Nausea, Vomiting, Abdominal Pain, Diarrhea, Constipation, Melena, Hematochezia. Genitourinary Denies: Dysuria, Frequency, Incontinence, Hematuria, Retention. Musculoskeletal Denies: Neck Pain, Shoulder Pain, Arm Pain, Back Pain, Hand Pain, Leg Pain, Foot Pain, Other. Skin Bruising. Neurological Denies: Weakness, Numbness, Incoordination, Change in speech, Confusion, Seizures, Other. Physical Exam Vital Signs / I&Os Vital Signs Date Time Temp Pulse Resp B/P Pulse O2 O2 Flow FiO2 Ox Delivery Rate 10/02 0707 99.1 70 18 131/80 94 Nasal 2.0 Cannula 10/02 0247 98.1 74 16 126/54 93 Nasal 2.0 Cannula 10/02 0024 Nasal 2.0 Cannula 10/01 2239 98.2 84 17 124/52 94 Nasal 2.0 Cannula 10/01 2009 3.0 10/01 1809 97.5 90 16 109/48 93 Nasal 3.0 Cannula 10/01 1700 Nasal 3.0 Cannula 10/01 1551 3.0 10/01 1423 98.1 97 24 137/77 95 Nasal 3.5 Cannula 10/01 1338 3.0 10/01 1333 3.0 10/01 1321 3.0 10/01 1119 98.1 94 18 157/90 94 Nasal 2.0 Cannula 10/01 0942 2.0 I&O 10/01 0800 10/01 1600 10/02 0000 Intake Total 340 340 120 Output Total 900 1000 775 Balance -560 -660 -655 General Appearance Alert, Oriented X3, Cooperative, No acute distress HEENT Normal exam, PERRLA, EOMI, Moist mucous membranes Lungs Normal air movement, DIMINISHED BS Neck Normal exam, Supple, No JVD, No lymphadenopathy, 2+ carotid pulse wo bruit Cardiovascular Regular rate and rhythm, No murmurs, gallops, rubs Abdomen Normal exam, Normal bowel sounds, Soft, No tenderness, No guarding, No rebound Extremities No cyanosis, No clubbing, No edema, Strength = upper ext's, Strength = lower ext's Skin No Rashes, No Breakdown, BRUISING ON ARMS Neurological Normal exam, Normal gait, Normal speech, Normal tone, Sensation intact, No lateralizing signs Psych/Mental Status Mood normal, Confused LAB Results Laboratory Tests 10/01 1030 Other Body Source Stool Occult Blood Pending Stl Occult Blood (ICT) Pending Occult Blood (ICT) #2 Pending Occult Blood (ICT) #3 Pending Assessment and Plan Problem List 1. Influenza A Status Acute Onset Date Unknown Plan RECOVERING 2. COPD (chronic obstructive pulmonary disease) Plan PFT'S PENDING. HOME NEBULIZER ORDERED W/DUONEB QID. 3. Anemia Status Acute Onset Date Unknown Plan S/P 2 U TRANSFUSION. COLONOSCOPY CONSULT NEXT WEEK 4. Prostate cancer 5. Tobacco use disorder Plan QUIT!!!! 6. Essential hypertension Plan CONTROLLED. 7. Rheumatoid arteritis Plan HOLD XELJANZ E&M Codes Rounding: Inpt-Moderate/21492 Discharge: Inpt >30 min spent/98029
--- NOTE | 2016-10-02 08:03 | Provider's Discharge Care Plan ---
Problem, Goal, Plan Problem List 1. COPD (chronic obstructive pulmonary disease) Goals: Improve disease control Instructions: Take meds as directed 2. Anemia Goals: Diagnostic testing Instructions: Follow up as needed (NEED COLONOSCOPY) 3. Prostate cancer Goals: Improve disease control Instructions: Follow up as directed (ONCOLOGY F/U) 4. Rheumatoid arteritis Goals: Prevent disease progress Instructions: Follow up as needed (WIAT TO RESTART XELJANZ)
[2016-10-02 10:37] VITALS: BP 147/81
--- NOTE | 2016-10-03 04:43 | ED MED RECONCILIATION SUMMARY ---
Patient: YOUNG GONZALEZ Medication Reconciliation Report [facility] VisitID: [id number] [address] [place] [address] 71y, M Registration Date/Time: 09/27/2016 Weight: 77.1 kg Height/Length: 66 in. BMI: 27.4 ALLERGIES: No Known Drug Allergy The patient's Home Medications are listed below: THE FOLLOWING MEDICATIONS NEED TO BE RECONCILED: Furosemide Oral Losartan Potassium Oral Simvastatin Oral Triazolam Oral Xeljanz Oral The source(s) of the original Home Medication information: Not obtained. The following Medications were given to the patient in the Emergency Department: Levofloxacin [PO] PO 500 mg, administered: 09/27/2016 8:28:00 PM Prednisone [PO] PO 40 mg, administered: 09/27/2016 8:29:00 PM Duoneb [Neb Tx] Neb TX 1 unit dose, administered: 09/27/2016 10:30:00 PM IV NS IV Fluids bolus 1000 mL wide open, administered: 09/27/2016 11:43:00 PM Albuterol [Neb Tx] Neb TX 1 unit dose, administered: 09/27/2016 11:52:00 PM Tylenol [PO] PO 650 mg, administered: 09/28/2016 12:42:00 AM The following Medications were prescribed to the patient: None.
--- NOTE | 2016-10-03 04:43 | ED MED RECONCILIATION SUMMARY ---
Patient: YOUNG GONZALEZ Medication Reconciliation Report [facility] VisitID: [id number] [address] [place] [address] 71y, M Registration Date/Time: 09/27/2016 Weight: 77.1 kg Height/Length: 66 in. BMI: 27.4 ALLERGIES: No Known Drug Allergy The patient's Home Medications are listed below: THE FOLLOWING MEDICATIONS NEED TO BE RECONCILED: Furosemide Oral Losartan Potassium Oral Simvastatin Oral Triazolam Oral Xeljanz Oral The source(s) of the original Home Medication information: Not obtained. The following Medications were given to the patient in the Emergency Department: Levofloxacin [PO] PO 500 mg, administered: 09/27/2016 8:28:00 PM Prednisone [PO] PO 40 mg, administered: 09/27/2016 8:29:00 PM Duoneb [Neb Tx] Neb TX 1 unit dose, administered: 09/27/2016 10:30:00 PM IV NS IV Fluids bolus 1000 mL wide open, administered: 09/27/2016 11:43:00 PM Albuterol [Neb Tx] Neb TX 1 unit dose, administered: 09/27/2016 11:52:00 PM Tylenol [PO] PO 650 mg, administered: 09/28/2016 12:42:00 AM The following Medications were prescribed to the patient: None.
--- NOTE | 2016-10-03 04:43 | ED DISCHARGE INSTRUCTIONS ---
Patient: YOUNG GONZALEZ General Instructions [facility] VisitID: [id number] [address] [place] [address] 71y, M Registration Date/Time: 09/27/2016 acute hypoxia upper respiratory tract infection ACUTE COPD EXACERBATION. (Electronically signed by Ramon Carr Dr. 10/03/2016 4:43)
--- NOTE | 2016-10-03 04:43 | ED DISCHARGE INSTRUCTIONS ---
Patient: YOUNG GONZALEZ General Instructions [facility] VisitID: [id number] [address] [place] [address] 71y, M Registration Date/Time: 09/27/2016 acute hypoxia upper respiratory tract infection ACUTE COPD EXACERBATION. (Electronically signed by Ramon Carr Dr. 10/03/2016 4:43)
--- NOTE | 2016-10-03 04:43 | ED MAR SUMMARY ---
..... Medication Administration Record [facility] [address] [place] [address] Patient: YOUNG GONZALEZ Visit ID: [id number] 71y, M Weight: 77.1 kg Height/Length: 66 in BMI: 27.4 ALLERGIES: No Known Drug Allergy Given 20:28 09/27/2016 Jose Luis Reese R.N. Medication Administered: LEVOFLOXACIN [PO], Dose: 500 mg PO. Medication Ordered: Levofloxacin PO 500 mg (NOW). Given 20:29 09/27/2016 Jose Luis Reese R.N. Medication Administered: PREDNISONE [PO], Dose: 40 mg PO. Medication Ordered: Prednisone PO 40 mg (NOW). Given 22:30 09/27/2016 Jd Senior, ER Ship Laborer Medication Administered: DUONEB [NEB TX] (IPRATROPIUM-ALBUTEROL), Dose: 1 unit dose Nebulizer Neb TX. Medication Ordered: DuoNeb Neb Tx 1 unit dose (NOW). Start 23:43 09/27/2016 Jose Luis Reese R.N. Medication Administered: IV NS (SALINE), Dose: IV Fluids, Bolus: 1000 mL wide open, Dispensed: 1000 mL bag, Site: #1 . Medication Ordered: IV NS : initial bolus 1000 mL (1000 mL/hr), then none - for X1 (NOW) (for renal protection). Given 23:52 09/27/2016 Jd Senior, ER Ship Laborer Medication Administered: ALBUTEROL [NEB TX], Dose: 1 unit dose Neb TX. Medication Ordered: Albuterol Neb Tx 5 mg (NOW). Given 00:42 09/28/2016 Jose Luis Reese R.N. Medication Administered: TYLENOL [PO] (ACETAMINOPHEN), Dose: 650 mg PO. Medication Ordered: Tylenol PO 650 mg (NOW).
--- NOTE | 2016-10-03 04:43 | ED MAR SUMMARY ---
..... Medication Administration Record [facility] [address] [place] [address] Patient: YOUNG GONZALEZ Visit ID: [id number] 71y, M Weight: 77.1 kg Height/Length: 66 in BMI: 27.4 ALLERGIES: No Known Drug Allergy Given 20:28 09/27/2016 Jose Luis Reese R.N. Medication Administered: LEVOFLOXACIN [PO], Dose: 500 mg PO. Medication Ordered: Levofloxacin PO 500 mg (NOW). Given 20:29 09/27/2016 Jose Luis Reese R.N. Medication Administered: PREDNISONE [PO], Dose: 40 mg PO. Medication Ordered: Prednisone PO 40 mg (NOW). Given 22:30 09/27/2016 Jd Senior, ER Storage Battery Inspector And Tester Medication Administered: DUONEB [NEB TX] (IPRATROPIUM-ALBUTEROL), Dose: 1 unit dose Nebulizer Neb TX. Medication Ordered: DuoNeb Neb Tx 1 unit dose (NOW). Start 23:43 09/27/2016 Jose Luis Reese R.N. Medication Administered: IV NS (SALINE), Dose: IV Fluids, Bolus: 1000 mL wide open, Dispensed: 1000 mL bag, Site: #1 . Medication Ordered: IV NS : initial bolus 1000 mL (1000 mL/hr), then none - for X1 (NOW) (for renal protection). Given 23:52 09/27/2016 Jd Senior, ER Storage Battery Inspector And Tester Medication Administered: ALBUTEROL [NEB TX], Dose: 1 unit dose Neb TX. Medication Ordered: Albuterol Neb Tx 5 mg (NOW). Given 00:42 09/28/2016 Jose Luis Reese R.N. Medication Administered: TYLENOL [PO] (ACETAMINOPHEN), Dose: 650 mg PO. Medication Ordered: Tylenol PO 650 mg (NOW).
--- NOTE | 2016-10-07 15:48 | DISCHARGE SUMMARY ---
ADMIT DATE: 09/27/2016 DISCHARGE DATE: 10/02/2016 ADMITTING DIAGNOSIS: 1. Influenza with hypoxemia DISCHARGE DIAGNOSES: 2. Influenza 3. Chronic obstructive pulmonary disease 4. Prostate cancer 5. Rheumatoid arthritis 6. Tobacco use disorder 7. Hypertension 8. Anemia BRIEF HISTORY: The patient is a patient ordinarily seen at the [facility] with a chronic history of rheumatoid arthritis, COPD, prostate cancer, and persisting anemia. He got sick on the week prior to admission with cough and malaise. He presented to the emergency department with shortness of breath and was found to be hypoxemic. A chest x-ray initially was with chronic obstructive pulmonary disease. An influenza screen was negative, but the respiratory panel showed evidence of influenza A. HOSPITAL COURSE: The patient was hospitalized and treated with oxygen. He was started on Tamiflu. Azithromycin was later added due to the suspicion of a possible infiltrate on a chest x-ray. His breathing status continued to improve and was stable with oxygen supplementation at the time of discharge, with an O2 saturation on 2 L at 94%. Blood and sputum cultures were not revealing. Admitting white blood count was 3.8 and improved to 9.3 prior to discharge. Anemia, however, was prevalent, with an admitting hematocrit that fell that from 30.6 to 24.9. At that point, because of ongoing dyspnea with minimal exertion, he was given 2 units of packed red blood cells. He has been followed by hematology for this, along with this prostate cancer. He has a colonoscopy referral scheduled at the end of the month. He was without a left shift, and there was a monocyte predominance on the admit CBC. A D-Dimer was initially elevated on admission, and a chest CT scan was performed. This did not show any pulmonary emboli and noted mild scarring of the left posterior lung base. A subsequent chest x-ray suggested the possibility of an infiltrate, though that was treated presumptively with azithromycin as mentioned. An echocardiogram was done during the hospitalization also, to help sort out his dyspnea on exertion. This showed a normal ejection fraction and only grade 1 diastolic dysfunction, with normal valves. Chemistry exam was mostly unremarkable, other than a slight hyperglycemia of 139. Iron level was low at 28. TIBC was 157, and iron saturation 18. Note that he has been treated with intravenous iron at the gas meter mechanic's. Vitamin B12 level was 820, and a folic acid was 7.5. Hemoccult notably was positive on 10/01/2016, and he is scheduled to see the surgeons regarding colonoscopy at the end of the month. The patient's respiratory status improved, though he still had dyspnea on exertion and was requiring home oxygen. This was to be arranged for him at discharge, as well as a nebulizer treatment. Spirometry was performed, which showed severe COPD. DISCHARGE INSTRUCTIONS/MEDICATIONS: Again, the patient is to continue with nebulizer DuoNeb at home 4 times a day and will likely be on continuous home O2. His anemia has been followed by the gas meter mechanic that also takes care of his prostrate cancer. He is scheduled to see the surgeons regarding a colonoscopy, which would be imperative. Prostate cancer, unfortunately, is progressive, and he will see them in followup for ongoing chemotherapy. Rheumatoid arthritis is stable. I would not restart his Xeljanz until after he has overcome his influenza, in another week or two.
--- NOTE | 2016-10-07 15:48 | DISCHARGE SUMMARY ---
ADMIT DATE: 09/27/2016 DISCHARGE DATE: 10/02/2016 ADMITTING DIAGNOSIS: 1. Influenza with hypoxemia DISCHARGE DIAGNOSES: 2. Influenza 3. Chronic obstructive pulmonary disease 4. Prostate cancer 5. Rheumatoid arthritis 6. Tobacco use disorder 7. Hypertension 8. Anemia BRIEF HISTORY: The patient is a patient ordinarily seen at the [facility] with a chronic history of rheumatoid arthritis, COPD, prostate cancer, and persisting anemia. He got sick on the week prior to admission with cough and malaise. He presented to the emergency department with shortness of breath and was found to be hypoxemic. A chest x-ray initially was with chronic obstructive pulmonary disease. An influenza screen was negative, but the respiratory panel showed evidence of influenza A. HOSPITAL COURSE: The patient was hospitalized and treated with oxygen. He was started on Tamiflu. Azithromycin was later added due to the suspicion of a possible infiltrate on a chest x-ray. His breathing status continued to improve and was stable with oxygen supplementation at the time of discharge, with an O2 saturation on 2 L at 94%. Blood and sputum cultures were not revealing. Admitting white blood count was 3.8 and improved to 9.3 prior to discharge. Anemia, however, was prevalent, with an admitting hematocrit that fell that from 30.6 to 24.9. At that point, because of ongoing dyspnea with minimal exertion, he was given 2 units of packed red blood cells. He has been followed by hematology for this, along with this prostate cancer. He has a colonoscopy referral scheduled at the end of the month. He was without a left shift, and there was a monocyte predominance on the admit CBC. A D-Dimer was initially elevated on admission, and a chest CT scan was performed. This did not show any pulmonary emboli and noted mild scarring of the left posterior lung base. A subsequent chest x-ray suggested the possibility of an infiltrate, though that was treated presumptively with azithromycin as mentioned. An echocardiogram was done during the hospitalization also, to help sort out his dyspnea on exertion. This showed a normal ejection fraction and only grade 1 diastolic dysfunction, with normal valves. Chemistry exam was mostly unremarkable, other than a slight hyperglycemia of 139. Iron level was low at 28. TIBC was 157, and iron saturation 18. Note that he has been treated with intravenous iron at the television rep[facility]. Vitamin B12 level was 820, and a folic acid was 7.5. Hemoccult notably was positive on 10/01/2016, and he is scheduled to see the surgeons regarding colonoscopy at the end of the month. The patient's respiratory status improved, though he still had dyspnea on exertion and was requiring home oxygen. This was to be arranged for him at discharge, as well as a nebulizer treatment. Spirometry was performed, which showed severe COPD. DISCHARGE INSTRUCTIONS/MEDICATIONS: Again, the patient is to continue with nebulizer DuoNeb at home 4 times a day and will likely be on continuous home O2. His anemia has been followed by the television repairer that also takes care of his prostrate cancer. He is scheduled to see the surgeons regarding a colonoscopy, which would be imperative. Prostate cancer, unfortunately, is progressive, and he will see them in followup for ongoing chemotherapy. Rheumatoid arthritis is stable. I would not restart his Xeljanz until after he has overcome his influenza, in another week or two.
[2016-10-22] MEDS ORDERED: SIMVASTATIN40 MG PO (13:46)
[2016-10-22] MEDS ORDERED: XELJANZ5 MG PO (13:46)
[2016-10-22] MEDS ORDERED: FUROSEMIDE40 MG PO (13:46)
[2016-10-22] MEDS ORDERED: CYANOCOBALAM1000 MCG IM (13:48)
[2016-10-22] MEDS ORDERED: VITAMIN D-31000 UNIT PO (13:49)
== END 2016-10-02 11:35 | disposition home or self-care (01) | DRG 193 ==
LOC: ED SRH 19:28 → ACUTE2 SRH 23:54 → TRANS SRH 23:54 → ACUTE2 SRH 09-28 01:32
PROVIDERS: ADMIT Family Medicine
PROC: 30233N1 Transfusion of Nonautologous Red Blood Cells into Peripheral Vein, Percutaneous Approach (ICD-10-PCS; principal; 2016-09-30)
DX: J10.1 Influenza due to other identified influenza virus with other respiratory manifestations (principal); J96.01 Acute respiratory failure with hypoxia; J44.1 Chronic obstructive pulmonary disease with (acute) exacerbation; M06.9 Rheumatoid arthritis, unspecified; I10 Essential (primary) hypertension; D50.9 Iron deficiency anemia, unspecified; Z72.0 Tobacco use